=== PATIENT | female | born 1960 | race Caucasian/White ===

== ENCOUNTER 2017-01-04 22:00 | Emergency (ER) | payer OTHER ==
[2017-01-05 00:19] VITALS: BP 123/68
== END 2017-01-05 00:11 | disposition home or self-care (01) ==
LOC: ED 22:00
DX: S61.251A Open bite of left index finger without damage to nail, initial encounter (principal); Z20.6 Contact with and (suspected) exposure to human immunodeficiency virus [HIV]; W50.3XXA Accidental bite by another person, initial encounter; Y93.89 Activity, other specified; Y92.89 Other specified places as the place of occurrence of the external cause; Y99.8 Other external cause status
CPT/HCPCS: Q0092